=== PATIENT | male | born 1940 | race Caucasian/White ===

== ENCOUNTER 2018-06-08 13:44 | Inpatient (IN) | payer MEDICARE, BC ==
--- NOTE | 2018-06-08 14:29 | ED ---
Dizziness - HPI Summary HPI Summary: This is Christy chu, documenting for attending Shelly Zavaleta MD. This patient is a 78 year old M presenting to [facility] with a chief complaint of nausea, vomiting (5-6 times), weakness, and dizziness beginning this afternoon while walking. He reports a recent productive cough. Initially denies fever, but states he "feels warm" compared to baseline. Denies CP, SOB, chills, urinary symptoms, bowel symptoms abdominal pain. Denies at home O2.Denies PMHx. - History Of Current Complaint Chief Complaint: EDGeneral Stated Complaint: VOMITTING/DIZZINESS/NEAR SYNCOPE Time Seen by Provider: 06/08/18 14:20 Hx Obtained From: Patient Onset/Duration: Still Present Timing: Hours Character: Lightheaded Associated Signs And Symptoms: Positive: Nausea, Vomiting, Other: - cough, weakness, vomitting. Negative: Chest Pain, SOB, Fever - Allergies/Home Medications Allergies/Adverse Reactions: Allergies Allergy/AdvReac Type Severity Reaction Status Date / Time No Known Allergies Allergy Verified 06/08/18 14:03 Home Medications: Home Medications Albuterol HFA INHALER* [Ventolin HFA Inhaler*] 2 puff INH QID PRN 06/08/18 [ History Confirmed 06/08/18] Apixaban* [Eliquis*] 5 mg PO Q12HR 06/08/18 [History Confirmed 06/08/18] Budesonide/Formote 160/4.5(NF) [Symbicort 160/4.5 (NF)] 2 puff INH BID 06/08/18 [History Confirmed 06/08/18] Fludrocortisone Acetate TAB* [Florinef TAB*] 0.1 mg PO DAILY 06/08/18 [History Confirmed 06/08/18] Midodrine (NF) 5 mg PO .AT LUNCH 06/08/18 [History Confirmed 06/08/18] Midodrine (NF) 7.5 mg PO BID 06/08/18 [History Confirmed 06/08/18] Pravastatin Sodium [Pravachol] 80 mg PO DAILY 06/08/18 [History Confirmed ] oxyCODONE SR TAB(*) [Oxycontin 10 mg (*)] 10 mg PO DAILY 06/08/18 [History Confirmed 06/08/18] PMH/Surg Hx/FS Hx/Imm Hx Sensory History: Denies: Hx Legally Blind EENT History: Denies: Hx Deafness - Immunization History Immunizations Up to Date: Yes Infectious Disease History: No Infectious Disease History: Denies: Traveled Outside the [place] in Last 30 Days - Family History Known Family History: Positive: Hypertension - Social History Alcohol Use: Occasionally Substance Use Type: Reports: None Smoking Status (MU): Former Smoker Review of Systems Positive: Fever, Other - dizziness. Negative: Chills Negative: Chest Pain Negative: Shortness Of Breath Positive: Vomiting, Nausea. Negative: Abdominal Pain Positive: no symptoms reported Positive: Weakness All Other Systems Reviewed And Are Negative: Yes Physical Exam - Summary Physical Exam Summary: Appearance: ill-appearing, Well-nourished, actively vomiting with nausea Skin: Warm Eyes: Normal ENT: Normal Neck: Supple, nontender Respiratory: Clear to auscultation Cardiovascular: Regular rate, regular rhythm. Normal S1, S2. Abdomen: Soft, nontender Musculoskeletal: Normal, Strength/ROM Intact Neurological: Normal, A&Ox3 Psychiatric: Normal General: No acute distress Triage Information Reviewed: Yes Vital Signs On Initial Exam: Initial Vitals Temp Pulse Resp BP Pulse Ox 100.7 F 114 22 179/87 89 06/08/18 13:45 06/08/18 13:45 06/08/18 13:45 06/08/18 13:45 06/08/18 13:45 Vital Signs Reviewed: Yes Diagnostics - Vital Signs Vital Signs Temp Pulse Resp BP Pulse Ox 06/08/18 13:45 100.7 F 114 22 179/87 89 - Laboratory Result Diagrams: 06/09/18 06:54 06/09/18 06:54 Lab Statement: Any lab studies that have been ordered have been reviewed, and results considered in the medical decision making process. - Radiology CXR Radiology Interpretation Completed By: Radiologist - NO ACTIVE CARDIOPULMONARY DISEASE. ED Physician has reivewed this report. - EKG 1540 Cardiac Rate: Tachycardia - 104 BPM EKG Rhythm: Sinus Tachycardia EKG Interpretation: no STT changes or T wave inversions. Dizzy Course/Dx - Course Course Of Treatment: UA was floridly positive for 2+ LE and blood with systemic signs of infection/SIRS, will admit under hospitalist service for acute UTI - Diagnoses Provider Diagnoses: Acute UTI, SIRS (systemic inflammatory response syndrome) - Provider Notifications Discussed Care Of Patient With: Juan Diego Hallman - hospitalist Time Discussed With Above Provider: 16:15 Instructed by Provider To: Admit As Inpatient Discharge - Sign-Out/Discharge Documenting (check all that apply): Patient Departure - Discharge Plan Condition: Stable Disposition: ADMITTED TO [facility] - Billing Disposition and Condition Condition: STABLE Disposition: Admitted to [facility]
[2018-06-08] MEDS ORDERED: Ondansetron INJ* 2 MG/ML VIAL IV ONE (14:45)
[2018-06-08 14:54] LABS: ABS Basophils 0 10^3/ul (0-0.2); ABS Eosinophils 0 10^3/ul (0-0.6); ABS Lymphocytes 0.1 10^3/ul (1.0-4.8); ABS Monocytes 0.3 10^3/ul (0-0.8); ABS Neutrophils 10.8 10^3/ul (1.5-7.7); ABS Nucleated RBC 0 10^3/ul; Eosinophil % 0.2 % (0-6); Hematocrit 41 % (42-52); Hemoglobin 14.1 g/dl (14.0-18.0); Lymphocyte % 0.7 % (25-47); Mean Corpuscular HGB Conc 34 g/dl (31-36); Mean Corpuscular Hemoglobin 30 pg (27-31); Mean Corpuscular Volume 88 fL (80-94); Mean Platelet Volume 7.3 um3 (7.4-10.4); Nucleated Red Blood Cells % 0.1; Platelet Count 181 10^3/ul (150-450); Red Blood Count 4.66 10^6/ul (4.00-5.40); Red Cell Distribution Width 15 % (10.5-15); White Blood Count 11.3 10^3/ul (3.5-10.8)
[2018-06-08 15:11] LABS: EGFR Non-African American 54.8 (>60)
--- NOTE | 2018-06-08 15:42 | RAD ---
HISTORY: SOB COMPARISONS: None VIEWS: 2: Frontal and lateral views of the chest. FINDINGS: CARDIOMEDIASTINAL SILHOUETTE: The cardiomediastinal silhouette is normal. JOHN: The john are normal. PLEURA: The costophrenic angles are sharp. No pleural abnormalities are noted. LUNG PARENCHYMA: The lungs are clear. ABDOMEN: The upper abdomen is clear. There is no subphrenic gas. BONES AND SOFT TISSUES: No bone or soft tissue abnormalities are noted. OTHER: None. IMPRESSION: NO ACTIVE CARDIOPULMONARY DISEASE.
[2018-06-08] MEDS: NS 0.9% 1000 ML* 1,000 ML IV SCH (16:09)
[2018-06-08 16:10] LABS: Urine Appearance Clear; Urine Blood 1+ (Negative); Urine Color Yellow; Urine Ketones Trace (Negative); Urine Protein Negative (Negative); Urine Red Blood Cell 2+(6-10/hpf) (Absent); Urine Urobilinogen Negative (Negative); Urine White Blood Cell 2+(11-20/hpf) (Absent)
[2018-06-08] MEDS ORDERED: cefTRIAXone VIAL(*) 1,000 MG VIAL IVPB ONE (16:28)
[2018-06-08] MEDS ORDERED: Metoclopramide IV* 5 MG/ML 2 ML VIAL IV ONE (16:28)
[2018-06-08] MEDS ORDERED: cefTRIAXone(*) 2 GM in NS 0.9% 100 ML* 100 ML IVPB ONE (16:41)
[2018-06-08] MEDS ORDERED: Acetaminophen TAB* 325 MG PO PRN (17:02)
[2018-06-08] MEDS ORDERED: Ondansetron INJ* 2 MG/ML VIAL IV PRN (17:02)
[2018-06-08] MEDS ORDERED: NS 0.9% 1000 ML* 1,000 ML IV SCH (17:15)
[2018-06-08] MEDS ORDERED: Albuterol HFA INHALER* 8 gm MDI INH PRN (17:47)
[2018-06-08] MEDS: Apixaban* 5 MG TAB PO SCH (20:20)
[2018-06-08] MEDS: CMCS:Midodrine (NF) 5 MG TAB PO SCH (20:21)
--- NOTE | 2018-06-08 21:10 | HP ---
HISTORY AND PHYSICAL: DATE OF ADMISSION: 06/08/18 PRIMARY CARE PHYSICIAN: Dr. Fidel Matthew. CHIEF COMPLAINT: Weakness. HISTORY OF PRESENT ILLNESS: This is a 78-year-old man with a history of urethral stricture, who presents today with sudden onset of weakness. He and his are here visiting from [place] and they were walking around the [facility] when he began to feel weak and could not go any further. He sat down on the bench and he tried to rest, but he continued to feel like he could not stand up and go on, so he asked his to get help. She went to call the ambulance and he continued to rest on the bench and EMS picked them up and brought them to the emergency department. His weakness was not associated with shortness of breath, chest pain, diaphoresis, dizziness or pain, but he did endorse some nausea and vomited once when he sat down. He had been feeling well prior to this episode this morning. He did note that when he woke up this morning. He had a poor appetite and did not eat breakfast or drink any water. However prior to today, he had been eating well and drinking well and had no recent illness or fevers. He and his flew here from [place] last and also drove from [place] over the weekend. He has received several liters of fluids in the emergency department after a positive urinalysis was found and he currently feels much better. He was able to walk from his bed to the commode and felt steady and had no lightheadedness, dizziness or weakness. He feels almost like to his baseline. PAST MEDICAL HISTORY: 1. Atrial fibrillation, status post ablation a few years ago and again in November 2017. He recently wore a Holter monitor and was informed that the monitor revealed no atrial fibrillation. Therefore, the ablation is thought to be successful. 2. Urethral structures, status post several dilations most recently a few months ago. He self catheterizes p.r.n., which he states is usually about twice weekly. 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 He undergoes Rituxan therapy q.6 months. His last treatment was 04/08. 4. CKD. 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 HOME MEDICATIONS: 1. Eliquis 5 mg b.i.d. 2. Pravachol 40 mg daily. 3. Nexium daily. 4. Midodrine 20 mg daily. 5. Fludrocortisone 0.1 mg daily. 6. Vitamin D. 7. Probiotics. 8. OxyContin 10 mg daily. ALLERGIES: None. SOCIAL HISTORY: He lives in [place], [place] with his . He is a nonsmoker. He drinks alcohol occasionally and social settings and he uses no other drugs. He is a retired computer application developer. REVIEW OF SYSTEMS: He denies chest pain, shortness of breath, lightheadedness, dizziness, fevers, sweats, dysuria, CVA tenderness, hematuria. He does complain of nausea and vomiting this morning, which has now resolved. PHYSICAL EXAMINATION GENERAL: Alert, well-appearing man, in no distress. VITAL SIGNS: Temperature 100.7, heart rate 114, respirations 22, pulse ox 89% on room air, blood pressure 179/87. HEENT: Pupils equal, round, reactive to light at 3 mm bilaterally. Rosacea on nose and cheeks. Oral mucosa is very dry. Posterior pharynx with no erythema or exudates. NECK: No cervical or supraclavicular lymphadenopathy. No JVP. CHEST: Tachycardic, regular rhythm. No murmurs. PMI nondisplaced. Lungs clear bilaterally. He does have a frequent cough during my exam. ABDOMEN: Soft, nontender, nondistended. No guarding or rebound. No CVA tenderness. EXTREMITIES: No rashes. No ulcers. No edema. NEUROLOGIC: Oriented x3. Strength of 5/5 in all extremities. Gait is steady and balanced. Sensation is intact. DIAGNOSTIC STUDIES/LAB DATA: White blood cells 11.3, hemoglobin 14.1, platelets 181. Sodium 138, potassium 3.9, chloride 108, bicarb 24, BUN 20, creatinine 1.27, glucose 167, lactic acid 1.6. ALT 16, AST 16, bilirubin 0.9, alk phos 63, troponin 0.01, TSH 0.87. Urinalysis 1+ blood, 1+ leukocyte esterase, 2+ white blood cells. Imaging: Chest x-ray: No active cardiopulmonary disease. EKG: Sinus tachycardia, normal axis, normal intervals. No chamber hypertrophy. No ST or T wave changes. ASSESSMENT AND PLAN: This is a 78-year-old man with a history of urethral strictures and atrial fibrillation and B cell lymphoma and chronic kidney disease, who presented to the emergency department during his vacation with his after he experienced an episode of fatigue and nausea during a long walk today and is found to have positive urinalysis in the emergency department. 1. Sepsis with a possible urinary source. While his urinalysis is not overwhelmingly convincing, in the setting of urethral strictures and intermittent self-catheterization, fever, and a leukocytosis with his vague symptoms, I agree with treating him for a urinary tract infection. He does meet systemic inflammatory response syndrome criteria and with the suspected source, I agree with volume resuscitation and will continue normal saline and I am continuing ceftriaxone. A urine culture has been sent in the emergency department and a blood culture has also been sent. Also on the differential for his systemic inflammatory response syndrome criteria is malignancy given his history of B cell lymphoma as well as a pulmonary source given his cough. However, he does note that he has had this same cough since his ablation in early 2018. He states that his PCP has worked up his cough and the workup has thus far been unremarkable. His chest x-ray is negative here; however, I will also check urinary strep antigen as well as Legionella antigen. 2. Urethral stricture, status post dilation. I suspect this contributed to his urinary tract infection given chronic incomplete emptying. Check a bladder ultrasound if urine output decreases and monitor urine output closely. 3. Atrial fibrillation, status post ablation. He is currently in sinus tachycardia. Continue Eliquis. 4. Hyperglycemia. This was incidentally noted on his BMP. I am checking a hemoglobin A1c. He has no history of diabetes. 5. Chemotherapy associated neuropathy. Continue his home OxyContin dose. 6. Chronic kidney disease. He believes his creatinine baseline is approximately 1.2, which it is today in the emergency department. I suspect this is his baseline and are related to volume depletion. 7. DVT prophylaxis. He is on therapeutic anticoagulation. 8. Disposition. Admit to inpatient for sepsis under the hospitalist service. [id number]/[facility] #: [id number] SANCHEZ
[2018-06-08] MEDS ORDERED: Heparin VIAL(*) 5000 UNITS/ML VIAL (FIVE THOUSAND) SUBCUT SCH (22:00)
[2018-06-09 07:18] LABS: ABS Basophils 0.1 10^3/ul (0-0.2); ABS Eosinophils 0 10^3/ul (0-0.6); ABS Lymphocytes 0 10^3/ul (1.0-4.8); ABS Monocytes 0.6 10^3/ul (0-0.8); ABS Neutrophils 9.6 10^3/ul (1.5-7.7); ABS Nucleated RBC 0 10^3/ul; Eosinophil % 0.4 % (0-6); Hematocrit 38 % (42-52); Lymphocyte % 0.4 % (25-47); Mean Corpuscular HGB Conc 35 g/dl (31-36); Mean Corpuscular Hemoglobin 31 pg (27-31); Mean Corpuscular Volume 88 fL (80-94); Mean Platelet Volume 7.8 um3 (7.4-10.4); Nucleated Red Blood Cells % 0; Platelet Count 156 10^3/ul (150-450); Red Blood Count 4.25 10^6/ul (4.00-5.40); Red Cell Distribution Width 15 % (10.5-15); White Blood Count 10.3 10^3/ul (3.5-10.8)
[2018-06-09 07:39] LABS: EGFR Non-African American 53.9 (>60)
[2018-06-09] MEDS: NS 0.9% 1000 ML* 1,000 ML IV SCH ×2 (09:19)
[2018-06-09] MEDS: Fludrocortisone Acetate TAB* 0.1 MG PO SCH (09:25)
[2018-06-09] MEDS: Apixaban* 5 MG TAB PO SCH ×2 (09:26→20:53)
[2018-06-09] MEDS: oxyCODONE SR TAB(*) 10 MG TAB.SR PO SCH (09:27)
[2018-06-09] MEDS: CMCS:Midodrine (NF) 5 MG TAB PO SCH ×3 (09:28→20:54)
--- NOTE | 2018-06-09 15:01 | PN ---
Subjective Date of Service: 06/09/18 Interval History: Febrile overnight. Poor appetite. Nausea this morning, couldn't eat breakfast. Urinating okay. Placed on Oxygen for pulse ox of 87% at rest. Objective Active Medications: Acetaminophen (Tylenol Tab*) 650 mg PO Q4H PRN PRN Reason: FEVER/PAIN Last Admin: 06/08/18 23:18 Dose: 650 mg Albuterol (Ventolin Hfa Inhaler*) 2 puff INH QID PRN PRN Reason: SHORTNESS OF BREATH Apixaban (Eliquis*) 5 mg PO Q12HR [facility] Last Admin: 06/09/18 09:26 Dose: 5 mg Fludrocortisone Acetate (Florinef Tab*) 0.1 mg PO DAILY [facility] Last Admin: 06/09/18 09:25 Dose: 0.1 mg Ceftriaxone Sodium 1 gm/ (Sodium Chloride) 50 mls @ 200 mls/hr IVPB Q24H [facility] Midodrine (Midodrine (Nf)) 5 mg PO DAILY@1200 JOSH; Protocol Last Admin: 06/09/18 12:19 Dose: 5 mg Midodrine (Midodrine (Nf)) 7.5 mg PO BID [facility]; Protocol Last Admin: 06/09/18 09:28 Dose: 7.5 mg Ondansetron HCl (Zofran Inj*) 4 mg IV Q4H PRN PRN Reason: NAUSEA/VOMITING Last Admin: 06/09/18 12:26 Dose: 4 mg Oxycodone HCl (Oxycontin(*)) 10 mg PO DAILY [facility] Last Admin: 06/09/18 09:27 Dose: 10 mg Vital Signs - 8 hr 06/09/18 06/09/18 06/09/18 07:38 07:54 09:27 Temperature 98.1 F Pulse Rate 92 Respiratory 16 20 18 Rate Blood Pressure 147/66 (mmHg) O2 Sat by Pulse 96 Oximetry 06/09/18 11:20 Temperature 99.7 F Pulse Rate 80 Respiratory 17 Rate Blood Pressure 127/56 (mmHg) O2 Sat by Pulse 90 Oximetry Oxygen Devices in Use Now: Nasal Cannula Appearance: alert, no distress, well appearing Eyes: No Scleral Icterus Ears/Nose/Mouth/Throat: NL Teeth, Lips, Gums Neck: NL Appearance and Movements; NL JVP Respiratory: - - coughs frequently, no rhonchi Cardiovascular: NL Sounds; No Murmurs; No JVD, RRR Abdominal: NL Sounds; No Tenderness; No Distention, - - no CVA tenderness Lymphatic: No Cervical Adenopathy Extremities: No Edema Skin: No Rash or Ulcers Neurological: Alert and Oriented x 3 Result Diagrams: 06/09/18 06:54 06/09/18 06:54 Microbiology and Other Data: Microbiology 06/08/18 21:40 Legionella Urinary Antigen - Final Urine Negative Legionella Antigen Assess/Plan/Problems-Billing Assessment: 78 yo man with history of urethral stricture s/p dilations and afib with ablations admitted with weakness and found to have a UTI - Patient Problems (1) Complicated UTI (urinary tract infection) Current Visit: Yes Status: Acute Code(s): N39.0 - URINARY TRACT INFECTION, SITE NOT SPECIFIED SNOMED Code(s): 58764799 Comment: likely related to urethral stricture and incomplete emptying and introduction of bacteria with self - straight catheterization today is ceftriaxone day 2 need culture data (2) Acute respiratory failure with hypoxia Current Visit: Yes Status: Acute Code(s): J96.01 - ACUTE RESPIRATORY FAILURE WITH HYPOXIA SNOMED Code(s): 83584830 Comment: I suspect this is related to volume overload from aggressive resuscitation Hold IVF and recheck pulse ox (3) Sepsis Current Visit: Yes Status: Acute Comment: present on admission per SIRS criteria, not per qSOFA lactate elevated this morning however I am placing volume resuscitation on hold due to hypoxia (4) B-cell lymphoma Current Visit: Yes Status: Acute Code(s): C85.10 - UNSPECIFIED B-CELL LYMPHOMA, UNSPECIFIED SITE SNOMED Code(s): 553457608 Comment: reportedly in remission, gets rituxin q6 months in [place] (5) Atrial fibrillation Current Visit: Yes Status: Acute Code(s): I48.91 - UNSPECIFIED ATRIAL FIBRILLATION SNOMED Code(s): 23569065 Comment: s/p ablation. in NSR now. on eliquis.
[2018-06-09] MEDS ORDERED: cefTRIAXone(*) 1 GM in NS 0.9% 50 ML* 50 ML IVPB SCH (17:00)
[2018-06-10] MEDS: CMCS:Midodrine (NF) 5 MG TAB PO SCH ×2 (09:14→12:13)
[2018-06-10] MEDS: oxyCODONE SR TAB(*) 10 MG TAB.SR PO SCH (09:15)
[2018-06-10] MEDS: Fludrocortisone Acetate TAB* 0.1 MG PO SCH (09:15)
[2018-06-10] MEDS: Apixaban* 5 MG TAB PO SCH (09:15)
--- NOTE | 2018-06-10 11:23 | RAD ---
Indication: Hypoxia. Cardiac and respiratory disease. Sepsis. Comparison: June 08, 2018 Technique: Upright AP 1049 hours Report: Patchy alveolar consolidation at the RIGHT mid to lower lung zone and to a lesser extent at the LEFT lung base. Negative for pleural effusion or pneumothorax. The heart, pulmonary vasculature, and mediastinal contours are unremarkable. IMPRESSION: #. RIGHT greater than LEFT alveolar consolidation new compared with the prior exam suspicious for pneumonia given the clinical context.
[2018-06-10 11:48] VITALS: BP 158/85
[2018-06-10] MEDS ORDERED: DOXYcycline CAP(*) 100 MG PO ONE (14:04)
--- NOTE | 2018-06-10 14:14 | DS ---
ADDENDUM NOW INCLUDED ON THIS REPORT DISCHARGE SUMMARY: DATE OF ADMISSION: 06/08/18 DATE OF DISCHARGE: 06/10/18 PRIMARY CARE PHYSICIAN: Dr. Fidel Matthew. PRINCIPAL DISCHARGE DIAGNOSES: 1. Weakness. 2. Urinary tract infection. 3. Chronic cough. SECONDARY DISCHARGE DIAGNOSES: 1. Urethral stricture. 2. Atrial fibrillation, status post ablation. 3. B-cell follicular lymphoma, in remission. 4. Chronic kidney disease. 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 PHYSICAL EXAMINATION: At the time of discharge, temperature 98.1 degrees, heart rate 73, respiratory rate 20, pulse ox 94% on room air, blood pressure 147 /70. General: Alert, well-appearing man, in no distress. HEENT: Pupils are equal, round, and reactive to light. No nystagmus. Moist oral mucosa. No pharyngeal exudates or erythema. Neck: No cervical or supraclavicular lymphadenopathy. No JVP. Chest: Regular rate and rhythm. No murmurs. PMI is nondisplaced. Lungs are clear bilaterally though he does cough frequently during my exam. Abdomen: Soft, nontender, nondistended. No guarding or rebound. Liver is nonpalpable. No CVA tenderness. Extremities: No edema. No rashes, no ulcers. Neurologic: Strength 5/5. Gait is normal and steady. DISCHARGE MEDICATIONS: 1. Eliquis 5 mg b.i.d. 2. Midodrine 5 mg at lunch. 3. Midodrine 7.5 mg b.i.d. 4. Symbicort 2 puffs inhaled b.i.d. 5. Pravastatin 80 mg daily. 6. OxyContin 10 mg daily. 7. Albuterol inhaler four times a day p.r.n. wheezing. 8. Florinef 0.1 mg daily. 9. Bactrim 1 tab b.i.d. for 4 more days. DIAGNOSTIC STUDIES/LAB DATA: Urinalysis: 1+ leuk esterase, 2+ white blood cells, 1+ blood. Urine culture: No growth to date at the time of discharge. Blood culture: No growth to date. Chest x-ray: No active cardiopulmonary disease. HOSPITAL COURSE BY PROBLEM: 1. Sepsis per the SIRS criteria. He did not meet sepsis per the qSOFA criteria. He had a fever at admission and the night of admission. While his urinalysis was not overwhelmingly convincing for a UTI, he did have some pyuria. In the setting of urethral strictures and self-catheterization intermittently and the lack of other explanation for his fever, lactic acidosis , and leukocytosis, we treated him empirically for UTI with ceftriaxone. He tolerated this well and at the time of discharge, though he has a negative urine culture, I am completing the course of treatment for complicated UTI and he will take 4 more days of Bactrim. He has no known drug allergies and has never had a problem with sulfa. 2. Weakness. He came to the emergency department because he felt so weak on a walk with his . By the time of discharge, he was seen ambulating independently and steadily with no assistance. 3. Chronic cough. This has been going on since November. He reports that his primary care physician has been working him up for this and he has not yet found an underlying etiology. His chest x-ray here was unremarkable. He certainly needs ongoing workup with his primary care provider regarding this ongoing cough that is nonproductive and he agrees to follow up closely with them. 4. B-cell follicular lymphoma, reportedly in remission. He gets rituximab q.6 months for this. He cannot recall what lymph node was involved and on my exam, he has no palpable lymphadenopathy, certainly this remains on the differential for his weakness and fever at the time of admission; however, he improved on antibiotic, so I have a lower suspicion for this and I recommend that he follow up with his oncologist when he returns to [place]. 5. AFib, status post ablation. He remains in normal sinus rhythm during this admission and he was continued on his home dose of Eliquis. DISPOSITION: Mr. Tello is being discharged on 06/10/18 in great condition with his . They are traveling back to [place] where they will schedule a followup appointment with his primary care provider and his oncologist. I recommended that he come back to the emergency department with any further weakness, shortness of breath, dysuria, hematuria, or inability to urinate. ADDENDUM: A chest x-ray was obtained prior to discharge due to hypoxia overnight. The chest x-ray shows a right lower lobe infiltrate, which is new from admission. I suspect this is more likely to have been the cause of his weakness and fevers on admission and also fits with his clinical picture of cough that has been worsened over the past several days; therefore, I am changing the Bactrim to doxycycline for 4 more days to cover community-acquired pneumonia. I am choosing doxycycline for outpatient treatment because he has a baseline prolonged QTc. I called the pharmacy and cancelled the Bactrim and changed it to doxycycline. I also explained this finding to Mr. Tello and his . Mr. Tello ambulated with his nurse today without desaturation on room air. [id number]/[facility] #: [id number]/[facility] #: [id number] [facility]
--- NOTE | 2018-06-10 14:55 | DS ---
DISCHARGE SUMMARY: DATE OF ADMISSION: DATE OF DISCHARGE: ADDENDUM: A chest x-ray was obtained prior to discharge due to hypoxia overnight. The chest x-ray shows a right lower lobe infiltrate, which is new from admission. I suspect this is more likely to have been the cause of his weakness and fevers on admission and also fits with his clinical picture of cough that has been worsened over the past several days; therefore, I am changing the Bactrim to doxycycline for 4 more days to cover community-acquired pneumonia. I am choosing doxycycline for outpatient treatment because he has a baseline prolonged QTc. I called the pharmacy and cancelled the Bactrim and changed it to doxycycline. I also explained this finding to Mr. Tello and his . Mr. Tello ambulated with his nurse today without desaturation on room air. [id number]/[facility] #: [id number] MTDMelonie
--- NOTE | 2018-06-15 12:27 | PN ---
Hospitalist Progress Note Date of Service: 06/10/18 45 minutes spent on discharge
== END 2018-06-10 14:30 | disposition home or self-care (01) | DRG 689 ==
LOC: ED 13:44 → MED 17:23
PROVIDERS: ADMIT Internal Medicine; ATTEND Internal Medicine
DX: N39.0 Urinary tract infection, site not specified (principal); J96.01 Acute respiratory failure with hypoxia; C82.80 Other types of follicular lymphoma, unspecified site; E87.2 Acidosis; G62.9 Polyneuropathy, unspecified; N18.9 Chronic kidney disease, unspecified; N35.9 Urethral stricture, unspecified; I48.91 Unspecified atrial fibrillation; L71.9 Rosacea, unspecified; R73.9 Hyperglycemia, unspecified; R05 Cough; R11.0 Nausea; Z79.01 Long term (current) use of anticoagulants; Z72.89 Other problems related to lifestyle; Z87.891 Personal history of nicotine dependence; Z82.49 Family history of ischemic heart disease and other diseases of the circulatory system
CPT/HCPCS: 36415; 71045; 71046; 80053; 81003; 81015; 83036; 83605; 84443; 84484; 85025; 87040; 87086; 87899; 93005; 99284; A9270-GY; J0696; J2405; J2765